=== PATIENT | male | born 1950 | race Caucasian/White ===

== ENCOUNTER 2023-10-10 21:36 | Emergency (ER) | payer MEDICARE, BC ==
[~2023-10-10] VITALS: Ht 175.3 cm; Wt 104.5 kg
[2023-10-10] MEDS ORDERED: LEVO25TA2 PO (22:10)
[2023-10-10] MEDS ORDERED: LISI1TAB32 PO (22:10)
[2023-10-10] MEDS ORDERED: ATOR10TA PO (22:10)
[2023-10-10] MEDS ORDERED: FAMO10TA41 PO (22:10)
[2023-10-10] MEDS ORDERED: INSU100V7 SQ (22:10)
[2023-10-10] MEDS ORDERED: OLME5TAB3 PO (22:10)
[2023-10-10 22:35] LABS: AMMONIA < 10 umol/L (11-32)
[2023-10-10 22:37] LABS: BASOPHILS % (AUTO) 0.6 % (0.0-2.0); EOSINOPHILS # (AUTO) 0.1 K/uL (0.0-0.7); EOSINOPHILS % (AUTO) 1.9 % (0.0-7.0); HEMATOCRIT 38.1 % (36.7-47.1); HEMOGLOBIN 13.2 g/dL (12.5-16.3); LYMPHOCYTES # (AUTO) 1.6 K/uL (0.8-4.8); LYMPHOCYTES % (AUTO) 20.1 % (20.5-51.5); MEAN CORPUSCULAR HEMOGLOBIN 30.7 uug (23.8-33.4); MEAN CORPUSCULAR HGB CONC 35 g/dL (32.5-36.3); MEAN CORPUSCULAR VOLUME 88.6 fL (73.0-96.2); MONOCYTES # (AUTO) 0.9 K/uL (0.1-1.30); MONOCYTES % (AUTO) 11.9 % (0.0-11.0); NEUTROPHILS # (AUTO) 5.1 K/uL (1.8-8.9); NEUTROPHILS % (AUTO) 65.5 % (38.5-71.5); PLATELET COUNT (AUTO) 157 K/uL (152-348); RED CELL DISTRIBUTION WIDTH 13.3 % (12.1-16.2); WHITE BLOOD COUNT (AUTO) 7.8 K/uL (3.6-10.2)
[2023-10-10 22:44] LABS: LACTIC ACID 2.2 mmol/L (0.4-2.0)
[2023-10-10 22:45] LABS: CALCIUM 9.4 mg/dL (8.5-10.1); CARBON DIOXIDE 27 mmol/L (21-32); CHLORIDE 106 mmol/L (98-107); CREATININE 1.3 mg/dL (0.6-1.3); GLUCOSE 56 mg/dL (74-106); POTASSIUM 3.9 mmol/L (3.5-5.1); SODIUM SERUM 143 mmol/L (136-145); UREA NITROGEN, BLOOD 23 mg/dL (7-18)
[2023-10-10 22:46] LABS: THYROID STIMULATING HORMONE 0.263 mIU/mL (0.358-3.740)
[2023-10-10 22:49] LABS: ALANINE AMINOTRANSFERASE 16 U/L (16-63); ALBUMIN 3.8 g/dL (3.4-5.0); ALKALINE PHOSPHATASE 90 U/L (50-136); ASPARTATE AMINOTRANSFERASE 13 U/L (15-37); BILIRUBIN,DIRECT 0.1 mg/dL (0.0-0.2); BILIRUBIN,TOTAL 0.5 mg/dL (0.2-1.0); TOTAL PROTEIN, SERUM 7.8 g/dL (6.4-8.2)
[2023-10-10 22:58] LABS: ACETAMINOPHEN < 10.0 ug/mL (10-30); ETHANOL < 3 MG/DL (0-10)
[2023-10-10] MEDS ORDERED: DEXTROSE 50% 50 ML DISP.SYRIN ONE (23:13)
[2023-10-10] MEDS: DEXTROSE 50% 50 ML DISP.SYRIN IV ONE (23:16)
[2023-10-11 01:48] LABS: *BILIRUBIN,URIN NEGATIVE (NEGATIVE); *BLOOD, URINE TRACE LYSED (NEGATIVE); *CLARITY,URINE SLIGHTLY CLOUDY (CLEAR); *COLOR,URINE YELLOW (YELLOW); *KETONES,URINE NEGATIVE (NEGATIVE); *PROTEIN,URINE NEGATIVE (NEGATIVE); *UROBILINOGEN,URINE 0.2 E.U./dl (NORMAL); LEUKOCYTE ESTERASE ,URINE 2+ (NEGATIVE); NITRITE, URINE POSITIVE (NEGATIVE); UGLUCOSE NEGATIVE (NEGATIVE)
[2023-10-11 01:59] LABS: BACTERIA,URINE MANY /HPF (NONE SEEN); RBC,URINE 0-3 /HPF (0-3); SQUAMOUS EPITHELIAL CELL,UR FEW /HPF (NONE SEEN); WBC,URINE 20-50 /HPF (0-3)
[2023-10-11 03:38] LABS: *AMPHETAMINE, URINE NEGATIVE (NEGATIVE); *BENZODIAZEPINE, URINE NEGATIVE (NEGATIVE); *CANNABINOID, URINE NEGATIVE (NEGATIVE); *COCCAINE, URINE NEGATIVE (NEGATIVE); *OPIATE, URINE NEGATIVE (NEGATIVE); *PHENCYCLIDINE SCREEN,URINE NEGATIVE (NEGATIVE)
[2023-10-11 04:06] VITALS: BP 124/74; TEMP 98.6; O2SAT 98
[2023-10-11 04:36] LABS: FENTANYL, URINE NEGATIVE (NEGATIVE)
[2023-10-11 04:37] LABS: *BARBITURATE, URINE NEGATIVE (NEGATIVE)
[2023-10-16] MEDS ORDERED: CEFD300C3 PO (16:09)
== END 2023-10-11 03:00 | disposition home or self-care (01) ==
LOC: ER 21:39
DX: E11.649 Type 2 diabetes mellitus with hypoglycemia without coma (principal); K21.9 Gastro-esophageal reflux disease without esophagitis; E03.9 Hypothyroidism, unspecified; R51.9 Headache, unspecified; Z79.899 Other long term (current) drug therapy
CPT/HCPCS: 80076; 80048; 82140; 82962 ×4; 84443; 85025; 85730; 87040 ×2; 84484; 36415 ×2; 93005; 71045; 70450; 71250; 96374; 83605 ×2; 80299; 80320; 80307; 99285; 81001; 87086; J3490; A4606; A4663; G0480